=== PATIENT | male | born 1955 | race Caucasian/White ===

== ENCOUNTER 2020-12-20 12:24 | Inpatient (IN) | payer OTHER, MEDICARE ==
[~2020-12-20] VITALS: Ht 180.3 cm; Wt 82.6 kg
[2020-12-20 12:52] VITALS: BP 148/83
[2020-12-20 14:18] LABS: ABSOLUTE NEUTROPHILS 5.6 thou/uL (1.4-8.2); BASOPHILS 0.7 % (0.0-2.0); HEMOGLOBIN 14.8 gm/dL (14.0-18.0); MCH 32.6 pg (26.0-34.0); MCHC 32.8 g/dL (28.0-37.0); MCV 99.4 fL (80.0-100.0); MONOCYTES 8.9 % (1.0-8.0); PLATELET COUNT 252 thou/uL (150-400); POLYS 72.4 % (36.0-66.0); RBC 4.53 mil/uL (4.50-6.00); RDW 13.9 % (10.5-14.5); WBC 7.7 thou/uL (4.0-11.0)
[2020-12-20 14:29] LABS: ANION GAP 9 mmol/L (7-16); BUN 17 mg/dL (7-18); CALCIUM 9.3 mg/dL (8.5-10.1); CHLORIDE 105 mmol/L (98-107); CO2 30 mmol/L (21-32); CREATININE 1.3 mg/dL (0.7-1.3); GLUCOSE 99 mg/dL (74-106); POTASSIUM 4.6 mmol/L (3.5-5.1); SODIUM 144 mmol/L (136-145)
[2020-12-20 14:40] LABS: ALBUMIN 4.1 g/dL (3.4-5.0); SGOT 14 U/L (15-37); SGPT 22 U/L (16-63); TOTAL BILIRUBIN 0.7 mg/dL (0.2-1.0); TOTAL PROTEIN 7.9 g/dL (6.4-8.2); TROPONIN-I <0.06 ng/mL (<0.06)
[2020-12-20] MEDS ORDERED: BREO ELLIPTA 21 EACH INH (16:22)
[2020-12-20] MEDS ORDERED: TERBINAFINE HC250 MG PO (16:22)
[2020-12-20 17:40] VITALS: BP 160/88
[2020-12-20 18:36] VITALS: BP 146/77
[2020-12-20 19:56] VITALS: BP 156/82
--- NOTE | 2020-12-20 20:03 | NUR ---
PATIENT ARRIVED TO UNIT AT APPROX. 1830 BY RADIOLOGIST CHIEF OF BREAST IMAGING FROM ED. PATIENT IS A&OX4; C/O NON-CARDIAC CHEST PAIN S/T FRACTURED STERNUM. EDUCATION AND HX. COMPLETED. VSS. ORIENTED TO ROOM AND ADVISED ON FALL PRECAUTIONS IN PLACE. ENDORSED TO NOC RN
--- NOTE | 2020-12-21 05:46 | NUR ---
RECEIVED CARE OF THIS PATIENT AT 1900. PATIENT ALERT AND ORIENTED X4. UP AD ESTUARDO IN ROOM. C/O PAIN X1, MED GIVEN. SLEPT MOST OF NIGHT.
[2020-12-21 08:15] VITALS: BP 132/68
[2020-12-21 11:30] VITALS: BP 132/68
--- NOTE | 2020-12-21 12:50 | NUR ---
Patient left with and son at 1203 to be dischaged home
--- NOTE | 2020-12-21 15:17 | EKG ---
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 12/21/20 1517 1402 01 Rogelio Ceja MD, [facility] /EPI
== END 2020-12-21 12:03 | disposition home or self-care (01) | DRG 566 ==
LOC: ER 12:24 → EROBS 16:47 → 4W 18:09
PROVIDERS: Physician Assistant; ADMIT Surgery; ATTEND Surgery
DX: S22.20XA Unspecified fracture of sternum, initial encounter for closed fracture (principal); J44.9 Chronic obstructive pulmonary disease, unspecified; V89.2XXA Person injured in unspecified motor-vehicle accident, traffic, initial encounter; Y93.89 Activity, other specified; Y92.89 Other specified places as the place of occurrence of the external cause; Y99.8 Other external cause status; Z79.899 Other long term (current) drug therapy; Z88.2 Allergy status to sulfonamides; Z72.89 Other problems related to lifestyle
CPT/HCPCS: 10045